=== PATIENT | female | born 1945 ===

== ENCOUNTER 2019-04-15 22:00 | Inpatient (IN) | payer MEDICARE, OTHER ==
[~2019-04-15] VITALS: Ht 152.4 cm; Wt 62.2 kg
[~2019-04-15 22:00] MED LIST: ACET325 PO; AMOCLA250S PO; ASPI81CH; FENO54 PO; Florastor250 MG PO; GUMMIES CHILDR1 EACH; HYDCHL25; PRAVASTATIN SOD10 MG PO
[2019-04-16 00:03] LABS: BASOPHILS ABSOLUTE AUTO 0.04 K/mm3 (0.00-0.23); BASOPHILS PERCENT AUTO 0 % (0-2); EOSINOPHILS ABSOLUTE AUTO 0.42 K/mm3 (0.00-0.68); EOSINOPHILS PERCENT AUTO 3 % (0-6); Hematocrit 41.8 % (33.0-51.0); Hemoglobin 13.6 g/dL (11.5-16.0); IMMATURE GRAN ABSOLUTE AUTO 0.04 K/mm3 (0.00-0.10); IMMATURE GRAN PERCENT AUTO 0 % (0-1); LYMPHOCYTES ABSOLUTE AUTO 1.65 K/mm3 (0.84-5.20); LYMPHOCYTES PERCENT AUTO 12 % (21-46); MONOCYTES PERCENT AUTO 11 % (4-13); Mean Corpuscular HGB 30.7 pg (26.0-34.0); Mean Corpuscular HGB Conc 32.5 g/dL (31.5-36.5); Mean Corpuscular Volume 94 fL (80-100); Mean Platelet Volume 10.7 fL (9.1-12.4); NEUTROPHILS ABSOLUTE AUTO 9.63 K/mm3 (1.96-9.15); NEUTROPHILS PERCENT AUTO 73 % (41-73); Platelet Count 223 K/mm3 (150-400); RDW Coefficient Variation 13.4 % (11.7-14.2); Red Blood Cell Count 4.43 M/mm3 (3.80-5.20); White Blood Cell Count 13.28 K/mm3 (4.00-11.30)
[2019-04-16 00:21] LABS: Alanine Aminotransfer (ALT/SGP 28 U/L (12-78); Albumin, Blood 4.4 g/dL (3.4-5.0); Albumin/Globulin Ratio 1.3 (0.8-1.8); Alk Phos 55 U/L (50-136); Anion Gap 5 mmol/L (6-16); Aspartate Aminotrans (AST/SGOT 27 U/L (12-37); Bilirubin, Total 0.2 mg/dL (0.1-1.0); Blood Urea Nitrogen 19 mg/dL (8-24); Bun/Creatinine Ratio 31.1 (12.0-20.0); CO2, Blood 33 mmol/L (21-32); Calcium, Blood 9.1 mg/dL (8.5-10.1); Chloride, Blood 105 mmol/L (98-108); Creatinine, Blood 0.61 mg/dL (0.40-1.00); Globulin, Blood 3.4 g/dL (2.2-4.0); Glomerular Filtration Rate >60 (60-); Glucose, Blood 100 mg/dL (70-99); Potassium, Blood 3.5 mmol/L (3.5-5.5); Sodium, Blood 143 mmol/L (136-145); Total Protein, Blood 7.8 g/dL (6.4-8.2)
--- NOTE | 2019-04-16 04:36 | NUR ---
ASSUMED CARE OF PATIENT AT [facility] 0235 FROM ED RN RUDY Gomez PATIENT ALERT AND ORIENTED X4; [facility]; STEADY ON FEET. PATIENT REPORTS "I THINK I MADE A MESS"; INCONTINENT OF STOOL; ATTENDS PLACED; ABLE TO REPORT WHEN SHE IS HAVING BOWEL MOEMENT. PATIENT DENIES PAIN, NUMBNESS, TINGLING, DIZZINESS AND NAUSEA. PATIENT HAS SWELLING AROUND NECK; REPORTS NOT PAINFUL AND ABLE TO BREATH FINE AND EAT/DRINK. NSR ON TELE; OXYGEN SATURATION ABOVE 90% ON ROOM AIR. PIV S/L. ADMISSION COMPLETE. PATIENT CURRENTLY RESTING IN BED; CALL LIGHT IN REACH; BED IN LOWEST POSISTION; WILL CONTINUE TO MONITOR AND ASSESS UNTIL END OF SHIFT.
--- NOTE | 2019-04-16 08:53 | NUR ---
AM NOTE. ASSUMED CARE OF PT APROX 0700, PT IS A&Ox4 AND SBA IN THE ROOM. PT WAS ADMITTED FOR [facility] AND HAS SWELLING UNDER HER CHIN/JAW AREA. PT STATES THAT IT IS NOT INTERFERING WITH HER AIRWAY OR BREATHING AT THIS TIME. TELE INTACT, NSR IN THE 70'S PER SENIOR MANAGER. PT'S BP 155/78. EDEMA NOTED UNDER THE PT'S CHIN. L/S CLEAR T/O, ON RA. BT PRESENT AND NORMOACTIVE, ABD IS SOFT AND NONTENDER TO PALP. PT HAS BEEN INCONT OF BOWEL AND BLADDER SINCE ADMIT, PT STATES SHE NORMALL IS CONT AND STATES "IT MUST BE NERVES." CAUSING HER INCONT EPISODES. WHEN ASKED IF ANXIOUS PT DENIES IT. WILL CONTINUE TO MONITOR, CALL LIGHT IN REACH, BED IS LOCKED AND LOW.
[2019-04-16 11:24] LABS: BASOPHILS ABSOLUTE AUTO 0.02 K/mm3 (0.00-0.23); BASOPHILS PERCENT AUTO 0 % (0-2); EOSINOPHILS ABSOLUTE AUTO 0.04 K/mm3 (0.00-0.68); EOSINOPHILS PERCENT AUTO 0 % (0-6); Hematocrit 44.8 % (33.0-51.0); Hemoglobin 14.5 g/dL (11.5-16.0); IMMATURE GRAN ABSOLUTE AUTO 0.04 K/mm3 (0.00-0.10); IMMATURE GRAN PERCENT AUTO 0 % (0-1); LYMPHOCYTES ABSOLUTE AUTO 0.61 K/mm3 (0.84-5.20); LYMPHOCYTES PERCENT AUTO 7 % (21-46); MONOCYTES PERCENT AUTO 1 % (4-13); Mean Corpuscular HGB 30.5 pg (26.0-34.0); Mean Corpuscular HGB Conc 32.4 g/dL (31.5-36.5); Mean Corpuscular Volume 94 fL (80-100); Mean Platelet Volume 10.8 fL (9.1-12.4); NEUTROPHILS ABSOLUTE AUTO 8.39 K/mm3 (1.96-9.15); NEUTROPHILS PERCENT AUTO 91 % (41-73); Platelet Count 251 K/mm3 (150-400); RDW Coefficient Variation 13.4 % (11.7-14.2); RDW Standard Deviation 46.8 fL (35.1-46.3); Red Blood Cell Count 4.75 M/mm3 (3.80-5.20)
--- NOTE | 2019-04-16 12:21 | NUR ---
PT UPDATE... PT HAS HAD SEVERAL EPISODES OF DIARRHEA THIS MORNING. PT HAS RECETNLY BEEN ON ANTIBIOTICS. ORDERS OBTAINED FOR IMMODIUM, THIS WAS GIVEN TO THE PT. SPOKE WITH PT'S DAUGHTER NEGRO ON THE PHONE. PT'S DAUGHTER IS CONCERNED ABOUT THE PT'S S.O. MAKING DECISIONS ABOUT HER CARE WITHOUT THE INPUT OF THE PT'S DAUGHTER'S. PT IS CURRENTLY ABLE TO MAKE HER OWN HEALTH CARE DECISIONS AT THIS TIME. WILL CONTINUE TO MONITOR.
--- NOTE | 2019-04-16 18:34 | NUR ---
SHIFT SUMMARY. NO ACUTE CHANGES NOTED THIS SHIFT. THE SWELLING UNDER THE PT'S CHIN/JAW HAS GONE DOWN A LOT SINCE THE START OF THIS SHIFT. PT DENIES ANY CHEST PAIN/PRESSURE, N/V OR SOB. PT HAD MULTIPLE EPISODES OF DIARRHEA THIS SHIFT, SHE WAS GIVEN IMMODIUM AND THIS HAS STOPPED. PT HAS BEEN UP WALKING THE HALLS AND IN HER ROOM WITH STAFF AND HER S.O. W/GAIT BELT AND FWW. PT'S VS HAVE BEEN STABLE T/O SHIFT. CALL LIGHT IN REACH, BED IS LOCKED AND LOW WILL CONTINUE TO MONITOR UNTIL REPORT IS GIVEN TO ONCOMING RN.
--- NOTE | 2019-04-16 19:36 | NUR ---
ASSUMED CARE OF PATIENT AT [facility] 1900 FROM FAY Dueñas RN. PATIENT ALERT AND ORIENTED X4; SBA IN ROOM WITH FWW; PATIENT USES CAN AT BASELINE; STEADY ON FEET. PATIENT'S NECK IS NO LONGER RED AND SWELLING REDUCED; PATIENT REPORTS HER NECK FEELS BETTER; LESS SWOLLEN. PATIENT EATING ICE CHIPS IN BED; REPORTS HAD A FULL MEAL FOR DINNER; MAY BE WHY SHE HAS DIARRHEA AND SHE ALSO REPORTED SHE TOOK A LAXATIVE AT HOME BEFORE COMING TO THE HOSPITAL; PATIENT'S MAIN COMPLAINT TODAY IS HER EPISODES OF DIARRHEA THAT HAVE SLOWED DOWN WITH PRN IMMODIUM; ATTENDS IN PLACE. PATIENT DENIES PAIN, NUMBNESS, TINGLING, DIZZINESS AND NAUSEA. NSR ON TELE; OXYGEN SATURATION ABOVE 90% ON ROOM AIR. PIV INFUSING IV ABX. PATIENT CURRENTLY RESTING IN BED; CALL LIGHT IN REACH; BED IN LOWEST POSISTION; WILL CONTINUE TO MONITOR AND ASSESS UNTIL END OF SHIFT.
[2019-04-17 04:43] LABS: Anion Gap 5 mmol/L (6-16); Blood Urea Nitrogen 23 mg/dL (8-24); Bun/Creatinine Ratio 35.9 (12.0-20.0); CO2, Blood 32 mmol/L (21-32); Calcium, Blood 9.4 mg/dL (8.5-10.1); Chloride, Blood 104 mmol/L (98-108); Creatinine, Blood 0.64 mg/dL (0.40-1.00); Glomerular Filtration Rate >60 (60-); Glucose, Blood 154 mg/dL (70-99); Potassium, Blood 3.8 mmol/L (3.5-5.5); Sodium, Blood 141 mmol/L (136-145)
--- NOTE | 2019-04-17 07:43 | NUR ---
AM NOTE. ASSUMED CARE OF PT APROX 0700, PT IS A&Ox4 AND SBA IN THE ROOM. THE SWELLING IN THE PT'S THROAT/NECK HAS IMPROVED FROM YESTERDAY. TELE INTACT, NSR IN THE 70-80'S PER PAPER BALER. PT'S BP 162/80. NO EDEMA NOTED ON ASSSESMENT EXCEPT UNDER THE PT'S CHIN. L/S CLEAR T/O ON RA >92%. BT PRESENT AND NORMOACTIVE. ABD IS SOFT AND NONTENDER TO PALP. PT STATES SHE IS HAVING SMALL AMOUNTS OF DIARRHEA BUT DID NOT WANT IMMODIUM AT THIS TIME. CALL LIGHT IN REACH, BED IS LOCKED AND LOW WILL CONTINUE TO MONITOR.
--- NOTE | 2019-04-17 13:20 | NUR ---
PT TRANSFER. REPORT WAS CALLED TO SURGICAL FLOOR RN TAKING THE PT. PT'S BELONGINGS WERE ALL PACKED UP AND SENT WITH THE PT. PT'S VS STABLE, NO C/O OF CHEST PAIN/PRESSURE, N/V OR SOB.
--- NOTE | 2019-04-17 15:53 | NUR ---
Patient is feeling much better today and is very appreciative of the hospital staff for all their help. Patient has an elevated mood and ready to go home tomorrow. I celebrate with patient about her recovery and point out all the love from family and friends that has come her way. I provide a prayer of thanks and blessing. Patient voices her gratitude.
--- NOTE | 2019-04-18 06:23 | NUR ---
PT HAD NO ACUTE CHANGES T/O NIGHT; VSS. PT DENIED SOB OR SWALLWOING DIFFICULTY. NO C/O PAIN/N/V. PT UP IN ROOM W/SBA. IV ABX CONT PER ORDERS. PT USING CALL LIGHT FOR ASSISTANCE, REP EAGER TO D/C HOME TODAY. WILL CONT TO MONITOR UNTIL REP GIVEN TO OCOMING RN.
[2019-04-18] MEDS ORDERED: DEXA2 (10:30)
[2019-04-18] MEDS ORDERED: BENADRYL25 MG PO (10:31)
--- NOTE | 2019-04-18 11:33 | NUR ---
DISCHARGE ESCORTED OUT VIA W/C. SCRIPTS CALLED OT [facility].
== END 2019-04-18 11:27 | disposition home or self-care (01) | DRG 158 ==
LOC: ER 22:00 → PCU 22:01 → ER 22:01 → SURS 04-16 02:27 → PCU 04-16 02:35 → SURS 04-16 09:54 → PCU 04-16 09:55 → SURS 04-17 13:20
PROVIDERS: Emergency Medicine; Internal Medicine; ADMIT Hospitalist
DX: K12.2 Cellulitis and abscess of mouth (principal); E87.3 Alkalosis; K52.1 Toxic gastroenteritis and colitis; I10 Essential (primary) hypertension; E78.5 Hyperlipidemia, unspecified; T36.0X5A Adverse effect of penicillins, initial encounter; Y92.239 Unspecified place in hospital as the place of occurrence of the external cause; R73.9 Hyperglycemia, unspecified; T38.0X5A Adverse effect of glucocorticoids and synthetic analogues, initial encounter; R53.81 Other malaise
CPT/HCPCS: 36415; 70491; 80048; 80053; 82947; 85025; 96361-59; 96365-59; 96366; 96372; 96375-59; 96376; 99284-25; G0378; J1100; J1650; J2543; J7030; J7050; Q0163; Q9967